=== PATIENT | male | born 2000 | race Two or more races ===

== ENCOUNTER 2022-04-21 16:39 | Emergency (ER) | payer OTHER ==
[~2022-04-21] VITALS: Ht 172.7 cm; Wt 84.4 kg
== END 2022-04-21 19:06 | disposition home or self-care (01) ==
LOC: ER 16:39
DX: J10.1 Influenza due to other identified influenza virus with other respiratory manifestations (principal); Z20.822 Contact with and (suspected) exposure to COVID-19

== ENCOUNTER 2024-05-16 07:38 | Emergency (ER) | payer OTHER ==
[~2024-05-16] VITALS: Ht 172.7 cm; Wt 79.4 kg
[2024-05-16] MEDS ORDERED: ONDANSETRON HCL 2 MG/ML VIAL IV STA (08:29)
[2024-05-16] MEDS ORDERED: FAMOTIDINE/PF 20 MG in 0.9 % SODIUM CHLORIDE 8 ML IV PUSH STA (08:29)
[2024-05-16] MEDS ORDERED: ONDANSETRON HCL 2 MG/ML VIAL ONE (08:33)
[2024-05-16] MEDS ORDERED: FAMOTIDINE/PF 20 MG/2 ML VIAL ONE (08:33)
[2024-05-16 09:22] LABS: HEMATOCRIT 47.1 % (39.0-48.0); HEMOGLOBIN 15.5 g/dL (13-16.00); MEAN CELL VOLUME 86.5 fL (80.0-100.00); MEAN CORPUSCULAR HEMOGLOBIN 28.4 pg (27.00-32.0); MEAN CORPUSCULAR HGB CONC 32.8 g/dl (32.0-36.0); PLATELET COUNT 278 K/uL (150-450); RED BLOOD COUNT 5.45 M/uL (4.00-6.00); RED CELL DISTRIBUTION WIDTH 13.7 % (11.5-14.5)
[2024-05-16] MEDS ORDERED: 0.9 % SODIUM CHLORIDE 1,000 ML IV STA (10:35)
[2024-05-16 10:42] LABS: CALCIUM 9.4 mg/dL (8.5-10.1); CREATININE SERUM 0.99 mg/dL (0.70-1.30); GFR 92.11; POTASSIUM 4.22 mEq/L (3.5-5.1)
[2024-05-16 15:33] LABS: URINE APPEARANCE Clear; URINE BILIRRUBIN Negative (NEGATIVE); URINE BLOOD Negative; URINE COLOR Yellow; URINE GLUCOSE Negative (NEGATIVE); URINE KETONE 15 (NEGATIVE); URINE LEUKOCYTE Negative; URINE NITRATE Negative; URINE PROTEIN Trace (NEGATIVE)
[2024-05-16 15:34] LABS: URINE EPITHELIAL CELLS 3.3 uL (0.0-38.8); URINE RBC 27.1 uL (0.0-20.8); URINE WBC 3.3 uL (0.0-23.2)
[2024-05-16 15:35] LABS: URINE BACTERIA 2.4 uL (0.0-1933)
== END 2024-05-16 15:16 | disposition home or self-care (01) ==
LOC: ER 07:41
PROVIDERS: Emergency Medicine
DX: K52.9 Noninfective gastroenteritis and colitis, unspecified (principal); R11.10 Vomiting, unspecified

== ENCOUNTER → 2024-06-10 | Emergency (ER) | payer OTHER ==
[~2024-06-10] VITALS: Ht 172.7 cm; Wt 79.4 kg
[~2024-06-10] MED LIST: BENZONATATE200 M1 PO; LEVALBUTER0.63 MG/3 IH; PEPCID AC20 MG PO; PROAIR RESPICL90 MCG IH; SINGULAIR10 MG PO
== END | disposition home or self-care (01) ==
LOC: ER 19:43
DX: J45.909 Unspecified asthma, uncomplicated (principal)